=== PATIENT | female | born 1955 | race Hispanic/Latino ===

== ENCOUNTER → 2023-07-22 | Outpatient (CLI) | payer MEDICARE ==
[~2023-07-22] MED LIST: IBUP-1493 PO; ONDA-104 PO; TAMS-1 PO
[2023-07-22 11:40] LABS: CREATININE 1.1 mg/dL (0.5-1.5); POTASSIUM 4.5 mmol/L (3.5-5.1)
== END | disposition home or self-care (01) ==
LOC: LAB 10:38
PROVIDERS: ATTEND Internal Medicine Cardiovascular Disease
DX: I10 Essential (primary) hypertension (principal); R06.02 Shortness of breath
CPT/HCPCS: 36415; 80048

== ENCOUNTER → 2023-07-24 | Outpatient (CLI) | payer MEDICARE ==
[~2023-07-24] MED LIST changes: +IOHEXOL 350 MG/ML 100ML INFUS..BTL IV ONE
== END | disposition home or self-care (01) ==
LOC: RAH 11:28
PROVIDERS: ATTEND Internal Medicine Cardiovascular Disease
DX: I20.9 Angina pectoris, unspecified (principal)
CPT/HCPCS: 75574; Q9967

== ENCOUNTER → 2024-01-28 | Outpatient (CLI) | payer MEDICARE ==
[~2024-01-28] MED LIST changes: -IOHEXOL 350 MG/ML 100ML INFUS..BTL IV ONE
== END | disposition home or self-care (01) ==
LOC: RAH 10:03
PROVIDERS: ATTEND Family Medicine
DX: M85.88 Other specified disorders of bone density and structure, other site (principal)
CPT/HCPCS: 77080

== ENCOUNTER → 2025-04-15 | Outpatient (CLI) | payer MEDICARE, MEDICAID ==
[~2025-04-15] MED LIST changes: -TAMS-1 PO; +TAMS-55 PO
--- NOTE | 2025-04-16 17:20 | HMCIMG ---
EXAM: MR Lumbar Spine Without Intravenous Contrast. CLINICAL HISTORY: Pain. TECHNIQUE: Magnetic resonance images of the lumbar spine in multiple planes. CONTRAST: None. COMPARISON: None. FINDINGS: For this examination, spinal levels were labeled assuming five non-rib bearing, lumbar-type vertebrae with the inferior labeled L5. No acute fracture. Mild dextroscoliosis. Normal lordotic curvature. Multilevel spondylosis is evident by marginal osteophytes and facet joint arthropathy. Multilevel disc desiccation noted. Small synovial cyst noted posterior to the right L5-S1 facet joint. Normal vertebral body and disc heights. Normal marrow signal of the vertebrae. Conus medullaris terminates at the T12 level. No abnormal epidural masses. The surrounding soft tissues are unremarkable. Individual spinal levels are described as follows: T12-L1: No disc bulge or herniation. No neural foraminal, lateral recess or spinal canal stenosis. L1-L2: No disc bulge or herniation. No neural foraminal, lateral recess or spinal canal stenosis. L2-L3: No disc bulge or herniation. No neural foraminal, lateral recess or spinal canal stenosis. L3-L4: 3 mm diffuse disc bulge causing mild indentation on the anterior thecal sac. No neural foraminal narrowing or lateral recess stenosis. L4-L5: 3 mm diffuse disc bulge causing mild indentation on the anterior thecal sac. No neural foraminal narrowing or lateral recess stenosis. L5-S1: 3 mm disc osteophyte complex bulge and facet joint arthropathy causing mild indentation on the anterior thecal sac and moderate to severe right lateral recess narrowing with compression of the traversing right S1 nerve root. No neural foraminal stenosis. IMPRESSION: Mild dextroscoliosis. Mild multilevel spondylosis.Mild indentation on the anterior thecal sac at the L3-L4 and L4-L5 levels. Mild indentation on the anterior thecal sac and moderate to severe right lateral recess narrowing with compression of the traversing right S1 nerve root at the L5-S1 level. /[place]
== END | disposition home or self-care (01) ==
LOC: RAH 10:46
PROVIDERS: ATTEND Family Medicine
DX: M47.817 Spondylosis without myelopathy or radiculopathy, lumbosacral region (principal); M51.370 Other intervertebral disc degeneration, lumbosacral region with discogenic back pain only; M48.07 Spinal stenosis, lumbosacral region; M41.86 Other forms of scoliosis, lumbar region; M54.31 Sciatica, right side; M25.78 Osteophyte, vertebrae; M53.87 Other specified dorsopathies, lumbosacral region
CPT/HCPCS: 72148